=== PATIENT | female | born 1965 | race Caucasian/White ===

== ENCOUNTER → 2017-10-30 | Outpatient (CLI) | payer OTHER ==
[~2017-10-30] MED LIST: ESTR1TAB36 PO; GABA300C10 PO; METH750T87 PO
== END | disposition home or self-care (01) ==
LOC: CFH 14:41
PROVIDERS: ATTEND Internal Medicine
DX: R29.90 Unspecified symptoms and signs involving the nervous system (principal)
CPT/HCPCS: 93880

== ENCOUNTER → 2018-05-07 | Outpatient (CLI) | payer OTHER ==
[~2018-05-07] MED LIST changes: +DICL100G29 TP; +DICL50TA2 PO; +MUPI15CR9 TP; +OXYB5TAB7 PO; +ROSU5TAB11 PO
[2018-05-07 15:14] LABS: BASOPHILS # (AUTO) 0.04 x10^3/uL (0-0.1); BASOPHILS % (AUTO) 1 % (0-1); EOSINOPHILS % (AUTO) 4 % (1-7); LYMPHOCYTES % (AUTO) 29 % (22-44); MD NO; MEAN CORPUSCULAR HEMOGLOBIN 30.7 pg (27.0-34.8); MEAN CORPUSCULAR HGB CONC 33.5 g/dL (32.4-35.8); MEAN CORPUSCULAR VOLUME 91.7 fL (80-100); MEAN PLATELET VOLUME 9.1 fL (7.4-10.4); MONOCYTES # (AUTO) 0.43 x10^3/uL (0.2-0.8); MONOCYTES % (AUTO) 6 % (2-9); NEUTROPHILS # (AUTO) 4.23 x10^3/uL (1.8-6.8); NEUTROPHILS % (AUTO) 60 % (42-75); PLATELET COUNT 287 x10^3/uL (130-400); RED BLOOD COUNT 4.64 x10^6/uL (3.82-5.3); RED CELL DISTRIBUTION WIDTH 14.1 % (9.6-15.2)
[2018-05-07 15:20] LABS: INTERNATIONAL NORMALIZED RATIO 1.02 (0.93-1.1); PROTHROMBIN TIME 10.5 Seconds (9.6-11.5)
[2018-05-07 15:22] LABS: ALBUMIN 3.7 g/dL (3.4-5.0); ANION GAP 3 mmol/L (5-15); CALCIUM 9.1 mg/dL (8.5-10.1); CHLORIDE 107 mmol/L (98-107)
[2018-05-07 15:26] LABS: ALANINE AMINOTRANSFERASE 33 U/L (12-78); ALKALINE PHOSPHATASE 64 U/L (45-117); BILIRUBIN,TOTAL 0.2 mg/dL (0.2-1.0); CREATININE 1.32 mg/dL (0.55-1.02)
[2018-05-07 15:55] LABS: MICROSCOPIC NOT IND
[2018-05-07 16:06] LABS: CULTURE INDICATED? NO
== END | disposition home or self-care (01) ==
LOC: STAR 14:02
PROVIDERS: ATTEND Orthopaedic Surgery Orthopaedic Surgery of the Spine
DX: Z01.818 Encounter for other preprocedural examination (principal); M47.892 Other spondylosis, cervical region
CPT/HCPCS: 36415; 71046; 80053; 81003; 85025; 85610; 85730

== ENCOUNTER 2018-05-29 05:32 | Inpatient (IN) | payer OTHER ==
[~2018-05-29] VITALS: Ht 172.7 cm; Wt 90.1 kg
[2018-05-29] MEDS ORDERED: LIDOCAINE/PF 0.5% ,50ML ONE (06:31)
[2018-05-29] MEDS ORDERED: VANCOMYCIN 500 MG ONE (06:31)
[2018-05-29] MEDS ORDERED: THROMBIN 5,000 UNIT VIAL TP ONE (06:31)
[2018-05-29] MEDS ORDERED: VANCOMYCIN 1,000 MG ONE (06:31)
[2018-05-29] MEDS ORDERED: EPINEPHRINE 1 MG/ML, 1ML ONE (06:31)
[2018-05-29] MEDS ORDERED: LACTATED RINGERS 1,000 ML IV SCH (07:01)
[2018-05-29] MEDS ORDERED: MIDAZOLAM 1 MG/ML, 2ML ONE (07:16)
[2018-05-29] MEDS ORDERED: FENTANYL PF 250 MCG/5ML ONE (07:21)
[2018-05-29] MEDS ORDERED: NEOSTIGMINE 1 MG/ML, 10ML ONE (07:27)
[2018-05-29] MEDS ORDERED: ONDANSETRON 2MG/ML, 2ML ONE (07:27)
[2018-05-29] MEDS ORDERED: ROCURONIUM 10MG/ML,5ML ONE (07:27)
[2018-05-29] MEDS ORDERED: GLYCOPYRROLATE 0.2MG/1ML, 5ML ONE (07:27)
[2018-05-29] MEDS ORDERED: PROPOFOL 100 ML ONE ×2 (07:27→09:54)
[2018-05-29] MEDS ORDERED: CEFAZOLIN 1,000 MG ONE (07:27)
[2018-05-29] MEDS ORDERED: PROPOFOL 10 MG/ML, 20ML ONE (07:27)
[2018-05-29] MEDS ORDERED: DEXAMETHASONE 4 MG/ML, 1ML ONE (07:27)
[2018-05-29] MEDS ORDERED: SUCCINYLCHOLINE 20 MG/ML, 10ML ONE (07:27)
[2018-05-29] MEDS ORDERED: LIDOCAINE-MPF 2% ,5ML ONE ×2 (07:28)
[2018-05-29] MEDS ORDERED: MEPERIDINE/PF 25MG/0.5ML IVPush PRN (07:30)
[2018-05-29] MEDS ORDERED: ONDANSETRON 2MG/ML, 2ML IV PRN ×2 (07:30→12:30)
[2018-05-29] MEDS ORDERED: DIAZEPAM 5 MG/ML, 2ML IVPush PRN (07:30)
[2018-05-29] MEDS ORDERED: MORPHINE SULFATE 4 MG/ML, 1ML IVPush PRN (07:30)
[2018-05-29] MEDS ORDERED: ONDANSETRON ODT 8 MG PO ONE (07:30)
[2018-05-29] MEDS ORDERED: ACETAMINOPHEN 500 MG TABLET PO ONE (07:30)
[2018-05-29] MEDS ORDERED: ONDANSETRON ODT 8 MG PO PRN (07:30)
[2018-05-29] MEDS ORDERED: LORazepam 2 MG/ML, 1ML IVPush PRN (07:30)
[2018-05-29] MEDS ORDERED: GABAPENTIN 300 MG CAPSULE PO ONE (07:30)
[2018-05-29] MEDS ORDERED: FAMOTIDINE 20 MG TABLET PO ONE (07:30)
[2018-05-29] MEDS ORDERED: OXYcodone 5 MG/5 ML ORAL.SOL UDC PO PRN (07:30)
[2018-05-29] MEDS ORDERED: HYDROmorphone 1 MG/ML, 1ML IV PRN (07:30)
[2018-05-29] MEDS ORDERED: PROCHLORPERAZINE 5 MG/ML, 2ML IM PRN (07:30)
[2018-05-29] MEDS ORDERED: TRIAMCINOLONE ACETONIDE 40 MG/ML, 1ML ONE (09:51)
[2018-05-29] MEDS ORDERED: FENTANYL PF 100 MCG/2ML ONE (10:55)
[2018-05-29] MEDS ORDERED: OXYcodone 5 MG/5 ML ORAL.SOL UDC ONE ×2 (10:55→11:00)
[2018-05-29] MEDS: FENTANYL PF 100 MCG/2ML IV PRN ×2 (11:00→11:10)
[2018-05-29] MEDS ORDERED: PHARMACY MAY ADJ FOR RENAL FX MC PRN (12:00)
[2018-05-29] MEDS ORDERED: HYDROcodone/APAP 10/325 MG TABLET PO PRN (12:30)
[2018-05-29] MEDS ORDERED: MAGNESIUM HYDROXIDE 8%, 30ML UDC PO PRN (12:30)
[2018-05-29] MEDS ORDERED: PROMETHAZINE 25 MG/ML, 1ML IM PRN (12:30)
[2018-05-29] MEDS ORDERED: morphine SULFATE 10 MG/ML, 1ML IV PRN (12:30)
[2018-05-29] MEDS ORDERED: BISACODYL 10 MG SUPP PR PRN (12:30)
[2018-05-29 12:55] VITALS: BP 115/67
[2018-05-29] MEDS: D5%-0.9% NACL+KCL 20MEQ 1,000 ML IV SCH ×2 (13:25→23:45)
[2018-05-29] MEDS: HYDROcodone/APAP 5/325 TABLET PO PRN ×2 (16:13→22:14)
[2018-05-29] MEDS: GABAPENTIN 300 MG CAPSULE PO SCH ×2 (16:13→22:14)
[2018-05-29] MEDS: CEFAZOLIN PMX 1GM/50ML 50 ML IVPB SCH ×2 (16:29→23:45)
[2018-05-29] MEDS: [UNRECOGNIZED DRUG - OTHER] MC SCH ×2 (16:30→20:30)
[2018-05-29 19:56] VITALS: BP 111/60
[2018-05-29] MEDS: OXYBUTYNIN CHLORIDE 5 MG TABLET PO SCH (22:14)
[2018-05-29 23:23] VITALS: BP 111/68
[2018-05-30 02:51] VITALS: BP 108/64
[2018-05-30] MEDS: [UNRECOGNIZED DRUG - OTHER] MC SCH ×2 (04:30→12:30)
[2018-05-30 06:59] VITALS: BP 99/64
[2018-05-30] MEDS ORDERED: ESTROGEN HOMEMEDPO SCH (09:00)
[2018-05-30] MEDS ORDERED: [UNRECOGNIZED DRUG - OTHER] HOMEMEDPO SCH (09:00)
[2018-05-30] MEDS ORDERED: SENNA/DOCUSATE TABLET PO SCH (09:00)
[2018-05-30] MEDS ORDERED: OXYcodone/APAP 5/325MG TABLET PO PRN (09:30)
[2018-05-30] MEDS: OXYBUTYNIN CHLORIDE 5 MG TABLET PO SCH (09:45)
[2018-05-30] MEDS: GABAPENTIN 300 MG CAPSULE PO SCH (09:45)
[2018-05-30] MEDS: D5%-0.9% NACL+KCL 20MEQ 1,000 ML IV SCH (10:00)
[2018-05-30 12:45] VITALS: BP 111/58
[2018-05-30] MEDS ORDERED: OXYC-302 PO (13:15)
== END 2018-05-30 14:00 | disposition home or self-care (01) | DRG 472 ==
LOC: ORIP 05:32 → 4NOR 11:45 → DCLOUNGE 05-30 13:45
PROVIDERS: ADMIT Orthopaedic Surgery Orthopaedic Surgery of the Spine; ATTEND Orthopaedic Surgery Orthopaedic Surgery of the Spine
PROC: 0RP104Z Removal of Internal Fixation Device from Cervical Vertebral Joint, Open Approach (ICD-10-PCS; 2018-05-29)
PROC: 0RR30JZ Replacement of Cervical Vertebral Disc with Synthetic Substitute, Open Approach (ICD-10-PCS; 2018-05-29)
PROC: 4A11X4G Monitoring of Peripheral Nervous Electrical Activity, Intraoperative, External Approach (ICD-10-PCS; 2018-05-29)
PROC: 0RG10J0 Fusion of Cervical Vertebral Joint with Synthetic Substitute, Anterior Approach, Anterior Column, Open Approach (ICD-10-PCS; principal; 2018-05-29 07:30)
DX: M48.02 Spinal stenosis, cervical region (principal); M96.0 Pseudarthrosis after fusion or arthrodesis; M50.123 Cervical disc disorder at C6-C7 level with radiculopathy; E78.00 Pure hypercholesterolemia, unspecified; Z88.7 Allergy status to serum and vaccine; Z88.8 Allergy status to other drugs, medicaments and biological substances; Z79.899 Other long term (current) drug therapy; M47.22 Other spondylosis with radiculopathy, cervical region; Y83.4 Other reconstructive surgery as the cause of abnormal reaction of the patient, or of later complication, without mention of misadventure at the time of the procedure; Y92.89 Other specified places as the place of occurrence of the external cause; E78.5 Hyperlipidemia, unspecified; G89.29 Other chronic pain
CPT/HCPCS: 72040; J3490; 95938; 95941; C1713; G0378; J0171; J0690; J1100; J2001; J2250; J2405; J2704; J2710; J3010; J3301; J3370; Q0162; C1762; J0330; J3480; J7120